=== PATIENT | male | born 1960 | race Caucasian/White ===

== ENCOUNTER 2019-10-31 15:53 | Emergency (ER) | payer OTHER ==
[~2019-10-31] VITALS: Ht 172.7 cm; Wt 113.4 kg
[2019-10-31 16:04] VITALS: BP 155/96; Ht 172.7 cm; Wt 113.4 kg
== END 2019-10-31 16:23 | disposition other institution (70) ==
LOC: ED 15:53
DX: Z02.89 Encounter for other administrative examinations (principal)
CPT/HCPCS: 82962